=== PATIENT | female | born 2005 | race Caucasian/White ===

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

== ENCOUNTER 2025-10-20 10:34 | Emergency (ER) | payer OTHER, SELFPAY ==
[2025-10-20 10:35] VITALS: BP 134/99; PULSE 75; RESP 20; TEMP 36.4; O2SAT 100
--- NOTE | 2025-10-20 10:38 | ED.RECABL ---
HPI - Recheck/Abnormal Lab/Rx General Chief Complaint: Recheck/Abnormal Lab/Rx Stated Complaint: med issue Time Seen by Provider: 10/20/25 10:38 Source: patient and family Mode of arrival: ambulatory Limitations: no limitations History of Present Illness HPI narrative: Patient is a 18-year-old female with nausea and vomiting today after being out of her Effexor for the past week. She has had this before 1 time and felt exactly the same. No concern for today. She has been on Effexor for many years. It is a holiday and she is not able to get refilled at this time with the primary doctor. She thought she had refills but turns out she did not have any refills left on this medication. complaint: medication refill request Initial visit (ago): day(s) (Five) Initial visit for: other (Out of medication of Effexor XR 150 mg daily) Returns today for: request for prescription Context: ran out of medication Associated symptoms: malaise and nausea (Vomit) Treatments prior to arrival: other (None) Related Data Allergies Allergy/AdvReac Type Severity Reaction Status Date / Time Sulfa (Sulfonamide Allergy Intermediate unknown Verified 10/20/25 10:37 Antibiotics) reaction Review of Systems Review of Systems: All systems reviewed & are unremarkable except as noted in HPI and below Constitutional: Constitutional: Reports no additional constitutional complaints Eyes: Eyes: Reports no additional eye complaints ENT: Reports system reviewed and no additional complaints, except as documented Cardiovascular: Cardiovascular: Reports no additional cardiovascular complaints Respiratory: Respiratory: Reports no additional respiratory complaints Gastrointestinal: Gastrointestinal: Reports no additional gastrointestinal complaints Genitourinary: Genitourinary: Reports no additional female genitourinary complaints Musculoskeletal: Musculoskeletal: Reports no additional musculoskeletal complaints Integumentary/Breasts: Skin/Breast: Reports system reviewed and no additional complaints, except as docu Neurologic: Reports system reviewed and no additional complaints, except as documented Psychiatric: Psychiatric: Reports no additional psychiatric complaints Endocrine: Endocrine: Reports no additional endocrine complaints Hematologic/Lymphatic: Hematologic/Lymphatic: Reports no additional hematologic/lymphatic complaints Allergic/Immunologic: Allergic/Immunologic: Reports no additional allergic/immunologic complaints PMFSH Past Medical History Medical History Abdominal pain Routine physical examination Tuberculin skin test encounter 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 Social History Social History Smoking status: Never smoker Alcohol intake: never Substance use: never Substance use type: does not use Lack of Transportation: No Lack of Food: Never True Current Housing: I Have Housing Concerned About Future Housing: No Difficulty Paying Gas/Electric Bills: No Difficulty Paying for Meds: No Currently Unemployed: No Education: High School Diploma/GED Difficulty w/ Childcare or Family Care: No Living arrangements: with family Additional living arrangements comments: Lives with Father. Occupation/Education: student Exam Const: General: healthy appearing Nutritional Appearance: well nourished Orientation/consciousness: patient oriented x3 Limitations: no limitations HENMT: Head: normal to inspection Ears: external ears normal Face/Nose/Sinus: Normal external nose present Eyes: Conjunctivae: conjunctivae normal Pupils: Equal, round and reactive pupils present EOM: EOMs intact bilaterally Neck: Neck: normal visual inspection Chest: Chest palpation & inspection: normal inspection of the chest Cardio: Rate: regular rate Rhythm: regular rhythm Heart sounds: no murmurs GI: Inspection: non-distended GI Palp: Yes Soft to palpation and No Tenderness to palpation present (GI) Auscultation: normal bowel sounds : General: Yes bladder normal to palpation Back/Spine/Pelvis: Back: no CVA tenderness and CVA tenderness Skin: General skin exam: normal color Rashes: no rashes Wounds: no wounds Neuro: General: patient oriented x3, moves all extremities, no meningeal signs, no focal motor deficits and CN's II-XI intact bilaterally Cranial nerves: Yes Nystagmus not present Speech: normal speech Gait exam (Neuro): Normal gait present Other: Fast exam negative, NIH is 0, GCS is 15 Extrem: General: normal to inspection Psych: Mental Status: mental status grossly normal Affect: normal affect Attitude: cooperative Other: No suicide or homicide ideation. Patient has not had recent suicide or homicide ideation. We spent some time discussing suicide ideation and restarting medication as a warning. Course Vital Signs Vital signs: Vital Signs Temperature 36.4 C L 10/20/25 10:35 Pulse Rate 75 10/20/25 10:35 Respiratory Rate 20 10/20/25 10:35 Blood Pressure 134/99 H 10/20/25 10:35 Pulse Oximetry 100 10/20/25 10:35 Oxygen Delivery Room Air 10/20/25 10:35 Temperature 36.4 C L 10/20/25 10:35 Pulse Rate 75 10/20/25 10:35 Respiratory Rate 20 10/20/25 10:35 Blood Pressure 134/99 H 10/20/25 10:35 Pulse Oximetry 100 10/20/25 10:35 Oxygen Delivery Room Air 10/20/25 10:35 MDM - Recheck/Abnormal Lab/Rx MDM Narrative Medical decision making narrative: Patient is a 20-year-old female who ran out of her Effexor XR and needs a refill. Pharmacy is open today but doctor's office for close due to the holiday. Refill Effexor XR 150 mg p.o. daily Number 30 with 0 refills. I explained that we cannot also give her refills any further on this medication and needs to see the primary doctor. Discharge Plan Discharge Clinical Impression: Encounter for medication refill Patient Disposition: Home Condition: Stable Instructions: Medicine Refill (ED) Additional Instructions: Please call your primary doctor after the weekend to make sure you get refills on this medication. I will have only a 30 day supply given at this time and refills will be required by the primary doctor for continuing this medication. Patient Language: Serbian Prescriptions: New venlafaxine 150 mg capsule,extended release 24hr 150 mg PO DAILY Qty: 30 0RF No Action azithromycin [Zithromax Z-Miller] 250 mg tablet See Rx Instructions PO .COMPLEX Qty: 6 0RF Rx Instructions: take 500 mg today (day 1), then 250 mg for 4 days (days 2-5) PO venlafaxine 150 mg capsule,extended release 24hr See Rx Instructions .ROUTE .COMPLEX Qty: 30 11RF Dose Instruction: TAKE 1 CAPSULE BY MOUTH DAILY Rx Instructions: TAKE 1 CAPSULE BY MOUTH DAILY Follow-up/Referrals: Bernarda Gong FORMULA WEIGHER [Primary Care Provider, [facility]] Time of Disposition: 10:48
[2025-10-20 11:02] VITALS: BP 134/99; PULSE 75; RESP 20; TEMP 36.4; O2SAT 100
== END 2025-10-20 11:02 | disposition home or self-care (01) ==
PROVIDERS: Emergency Provider Emergency Medicine; PCP Nurse Practitioner Family
DX: Z76.0 Encounter for issue of repeat prescription (principal); R11.2 Nausea with vomiting, unspecified
CPT/HCPCS: 99283